=== PATIENT | female | born 1940 | race Caucasian/White ===

== ENCOUNTER → 2018-02-11 | Outpatient (CLI) | payer BC, OTHER ==
[~2018-02-11] MED LIST: ASPI-232 PO; B-COTAB18 PO; CALC600T9 PO; CHLOTAB77 PO; CLON0.5T3 PO; CLR10 PO; CRS/10 PO; FLUO10CA48 PO; LEVO50TA6 PO; LOSA1TAB PO; MULT-506 PO; OFLO0.3S OP; PRED1SUS3; PRED1SUS3 OPL; PRLSR20 PO; SALI0.6517 NAE; TYL325X PO
[2018-02-11 18:14] LABS: BASO % 0.5 %; BASO ABS # 0.02 K/uL (0-0.2); EOS % 1.5 %; EOS ABS # 0.06 K/uL (0-0.5); HEMATOCRIT 40.8 % (37-47); HEMOGLOBIN 13.5 g/dL (12.0-16.0); IG# 0.02 K/uL (0.00-0.02); LYMPH % 28.7 %; LYMPH ABS # 1.13 K/uL (1.2-3.4); MEAN CELL VOLUME 89.5 fL (80-100); MEAN CORPUSCULAR HEMOGLOBIN 29.6 pg (25-34); MEAN CORPUSCULAR HGB CONC 33.1 g/dl (32-36); MEAN PLATELET VOLUME 11.3 fL (7.4-10.4); MONO % 8.9 %; MONO ABS # 0.35 K/uL (0.11-0.59); NEUT % 59.9 %; NEUT ABS # 2.36 K/uL (1.4-6.5); PLATELET COUNT 185 K/uL (130-400); RED CELL DISTRIBUTION WIDTH CV 12.9 % (11.5-14.5); RED CELL DISTRIBUTION WIDTH SD 41.7 fL (36.4-46.3); WHITE BLOOD COUNT 3.94 K/uL (4.8-10.8)
[2018-02-11 18:31] LABS: ALBUMIN 3.8 gm/dl (3.4-5.0); ALT/SGPT 25 U/L (12-78); AST/SGOT 32 U/L (15-37); BLOOD UREA NITROGEN 12 mg/dl (7-18); CALCIUM 9.2 mg/dl (8.5-10.1); CARBON DIOXIDE 26 mmol/L (21-32); CREATININE 1.02 mg/dl (0.60-1.20); GLUCOSE 75 mg/dl (70-99); POTASSIUM 3.8 mmol/L (3.5-5.1); SODIUM 134 mmol/L (136-145)
[2018-02-11 18:39] LABS: ALKALINE PHOSPHATASE 75 U/L (45-117); CHOLESTEROL 160 mg/dl (0-200); LDL CHOLESTEROL CALCULATED 70 mg/dl; TOTAL PROTEIN 7.2 gm/dl (6.4-8.2)
== END | disposition home or self-care (01) ==
LOC: C.LABSPEC 17:44
PROVIDERS: ATTEND Family Medicine
DX: I10 Essential (primary) hypertension (principal); E78.2 Mixed hyperlipidemia; E03.9 Hypothyroidism, unspecified; R31.9 Hematuria, unspecified